=== PATIENT | male | born 1955 | race Two or more races ===

== ENCOUNTER 2017-10-20 17:29 | Emergency (ER) | payer SELFPAY ==
[~2017-10-20] VITALS: Ht 172.7 cm; Wt 83.0 kg
[2017-10-20 17:31] VITALS: BP 128/68
== END 2017-10-20 20:55 | disposition left against medical advice (07) ==
LOC: ER 18:13
DX: R07.81 Pleurodynia (principal); Z53.21 Procedure and treatment not carried out due to patient leaving prior to being seen by health care provider